=== PATIENT | female | born 1990 | race African-American/Black ===

== ENCOUNTER 2016-12-13 14:50 | Emergency (ER) | payer SELFPAY ==
[~2016-12-13] VITALS: Ht 172.7 cm; Wt 96.4 kg
[~2016-12-13 14:50] MED LIST: CEPHALEXIN500 M1 PO; IMPLANON68 MG; LANOLIN TP; MOTRIN 600600 MG/TAB PO; NO HOME MEDICATIONS; PERCOCET 325 MG1 TA2 PO; PERCOCET 5/321 UDTAB PO; TUCKS50% TP
[2016-12-13 14:55] VITALS: BP 126/82; PULSE 103; TEMP 97.8
[2016-12-13 16:10] LABS: BASO % 0.1 % (0.0-2.0); EOS # 0.1 (0.0-0.7); EOS % 0.6 % (0-4.0); GRAN # 12.3 (1.4-6.5); GRAN % 84.8 % (42.2-75.2); HEMOGLOBIN 13.6 g/dl (12.5-16.0); LYMPH # 1.2 (1.2-3.4); MEAN CELL VOLUME 88 fl (80.0-100.0); MEAN CORPUSCULAR HEMOGLOBIN 29 pg (27.0-31.0); MEAN CORPUSCULAR HGB CONC 32 g/dl (33.0-37.0); MEAN PLATELET VOLUME 10.3 fl (7.4-10.4); MONO # 0.9 (0.1-0.6); MONO % 6.2 % (1.7-9.3); PLATELET COUNT 281 K/mm3 (130-400); RED BLOOD COUNT 4.77 M/mm3 (4.10-5.30); REDCELL DISTRIBUTION WIDTH-CV 13.9 % (11.5-14.5); WHITE BLOOD COUNT 14.5 K/mm3 (4.8-10.8)
[2016-12-13 16:22] LABS: ADJUSTED CALCIUM 9.3 mg/dL (8.4-10.2); ALBUMIN 4.5 gm/dL (3.5-5.0); BILIRUBIN,TOTAL 0.6 mg/dL (0.0-1.0); C-REACTIVE PROTEIN 1.2 mg/dL (0.0-0.9); CALCIUM 9.7 mg/dL (8.4-10.2); CREATININE, serum 0.86 mg/dL (0.52-1.25); POTASSIUM 3.8 mmol/L (3.4-5.0); TOTAL PROTEIN 8.4 gm/dL (6.4-8.2)
[2016-12-13] MEDS ORDERED: ZOFRAN 4MG T4 MG/TAB PO (16:53)
== END 2016-12-13 17:35 | disposition home or self-care (01) ==
LOC: COL.ER 14:50
PROVIDERS: Emergency Medicine
DX: R10.84 Generalized abdominal pain (principal); R11.10 Vomiting, unspecified; R19.7 Diarrhea, unspecified
CPT/HCPCS: J2405; J2550; J7030

== ENCOUNTER 2017-05-08 14:50 | Emergency (ER) | payer SELFPAY ==
[~2017-05-08] VITALS: Ht 172.7 cm; Wt 100.7 kg
[~2017-05-08 14:50] MED LIST changes: +ZOFRAN 4MG T4 MG/TAB PO
[2017-05-08 14:52] VITALS: BP 120/73; PULSE 72; TEMP 98.2
[2017-05-08] MEDS ORDERED: AMOXICILLIN 50500 MG PO (15:19)
== END 2017-05-08 15:31 | disposition home or self-care (01) ==
LOC: COL.ER 14:50
DX: J02.9 Acute pharyngitis, unspecified (principal); K08.89 Other specified disorders of teeth and supporting structures

== ENCOUNTER → 2017-06-22 | Emergency (ER) | payer SELFPAY ==
[~2017-06-22] VITALS: Ht 172.7 cm; Wt 93.2 kg
[~2017-06-22] MED LIST changes: +AMOXICILLIN 50500 MG PO; +NORCOELIX PO
[2017-06-22 10:09] VITALS: BP 109/65; PULSE 80; TEMP 98
== END ==
LOC: COL.ER 09:58
DX: J02.9 Acute pharyngitis, unspecified (principal)

== ENCOUNTER 2017-06-23 08:41 | Emergency (ER) | payer SELFPAY ==
[~2017-06-23] VITALS: Ht 172.7 cm; Wt 93.2 kg
[~2017-06-23 08:41] MED LIST changes: -NORCOELIX PO
[2017-06-23 08:44] VITALS: BP 103/64; TEMP 99.4
[2017-06-23] MEDS ORDERED: NORCOELIX PO (09:30)
[2017-06-23 10:14] VITALS: PULSE 92
== END 2017-06-23 10:15 | disposition home or self-care (01) ==
LOC: COL.ER 08:41
DX: J03.90 Acute tonsillitis, unspecified (principal)
CPT/HCPCS: J1100

== ENCOUNTER 2018-04-07 16:53 | Emergency (ER) | payer MEDICAID ==
[~2018-04-07] VITALS: Ht 172.7 cm; Wt 95.5 kg
[~2018-04-07 16:53] MED LIST changes: +NORCOELIX PO
[2018-04-07 16:59] VITALS: BP 123/69; TEMP 98.2
[2018-04-07 17:50] LABS: BASO % 0.1 % (0.0-2.0); EOS # 0.2 (0.0-0.7); EOS % 2.1 % (0-4.0); GRAN # 5.7 (1.4-6.5); GRAN % 68.5 % (42.2-75.2); HEMATOCRIT 35.7 % (37.0-47.0); HEMOGLOBIN 11.5 g/dl (12.5-16.0); LYMPH # 1.7 (1.2-3.4); LYMPH % 20.2 % (20.0-51.0); MEAN CELL VOLUME 89 fl (80.0-100.0); MEAN CORPUSCULAR HEMOGLOBIN 29 pg (27.0-31.0); MEAN CORPUSCULAR HGB CONC 32 g/dl (33.0-37.0); MEAN PLATELET VOLUME 10.2 fl (7.4-10.4); MONO # 0.7 (0.1-0.6); MONO % 8.7 % (1.7-9.3); PLATELET COUNT 250 K/mm3 (130-400); RED BLOOD COUNT 4.03 M/mm3 (4.10-5.30); REDCELL DISTRIBUTION WIDTH-CV 14.2 % (11.5-14.5)
[2018-04-07 17:53] LABS: COLLECTION METHOD CLEAN CATCH
[2018-04-07 17:58] LABS: PH 8 (5-8); SQUAMOUS EPITHELIAL 0-2 /hpf; URINE APPEARANCE Clear; URINE BACTERIA None Seen /hpf; URINE BILIRUBIN Negative (NEGATIVE); URINE BLOOD Negative (NEGATIVE); URINE COLOR Straw; URINE GLUCOSE Negative (NEGATIVE); URINE KETONE Negative (NEGATIVE); URINE LEUKOCYTE ESTERASE Negative (NEGATIVE); URINE NITRATE Negative (NEGATIVE); URINE PROTEIN(semi-quant) Negative (NEGATIVE); URINE RBC 0-2 /hpf; URINE UROBILINOGEN Negative (NEGATIVE)
[2018-04-07 18:01] LABS: ALBUMIN 3.8 gm/dL (3.5-5.0); BILIRUBIN,TOTAL 0.2 mg/dL (0.0-1.0); CALCIUM 9.1 mg/dL (8.4-10.2); CREATININE, serum 0.77 mg/dL (0.52-1.25); POTASSIUM 3.8 mmol/L (3.4-5.0)
[2018-04-07 18:41] VITALS: PULSE 74
== END 2018-04-07 18:41 | disposition home or self-care (01) ==
LOC: COL.ER 16:53
PROVIDERS: Nurse Practitioner Primary Care
DX: O99.89 Other specified diseases and conditions complicating pregnancy, childbirth and the puerperium (principal); R10.9 Unspecified abdominal pain; Z3A.00 Weeks of gestation of pregnancy not specified

== ENCOUNTER 2018-12-01 16:33 | Outpatient (CLI) | payer MEDICAID ==
[~2018-12-01] VITALS: Ht 167.6 cm; Wt 118.2 kg
--- NOTE | 2018-12-01 16:50 | NUR ---
Pt arrives on unit via wheelchair. States pressure and increase of cramps since this morning. Denies leaking of fluid and vaginal bleeding. Reports GFM. Changed into clean gown. EFM and toco applied. VSS. SVE per this RN /-2. Admission assessment completed. Water given. Call light within reach. Bed locked in low position. Dr. Martin notified. See physician notification. Pt updated on POC. No questions or concerns at this time.
[2018-12-01 17:51] VITALS: BP 117/71; PULSE 107; TEMP 97.9
--- NOTE | 2018-12-01 17:57 | NUR ---
SVE per this RN unchanged. Pt taken off monitors. Orders for discharge. Discharge instructions given. No questions or concerns at this time. Pt leaves unit ambulatory.
== END 2018-12-01 17:58 | disposition home or self-care (01) ==
LOC: LDRO 16:33 → LDR 17:00 → LDRO 17:58
DX: O26.893 Other specified pregnancy related conditions, third trimester (principal); R25.2 Cramp and spasm; R10.9 Unspecified abdominal pain
CPT/HCPCS: OP

== ENCOUNTER 2018-12-05 15:43 | Outpatient (CLI) | payer MEDICAID ==
[~2018-12-05] VITALS: Ht 167.6 cm; Wt 117.7 kg
--- NOTE | 2018-12-05 16:00 | NUR ---
1600-G2L1 39.[address] [facility] WITH COMPLAINTS OF POSSIBLE SROM SINCE 0900. PATIENT GBS +. WENT TO REGULARLY SCHEDULED OB VISIT WITH SAMMIE DOE AND SENT TO UNIT. DENIES VB, REPORTS GOOD MOVEMET. REPORTS "ON AND OFF CONTRACTIONS SINCE LAST NIGHT." 1607-PLACED ON EFM DIFFICULTY TRACING FHR DUE TO MATERNAL POSITIONING AND HABITUS. RN REMAINS AT BEDSIDED FREQUENTLY REPOSITIONING EFM. 1620-AMNITEST NEG. SVE /-2 UNCHANGED FROM VISIT ON UNIT 12/01/18. UPDATE . 1633-AMNISURE COLLECTED. ASSESSMENT COMPLETE. UPDATED ON PLAN OF CARE.
[2018-12-05 16:01] VITALS: BP 113/59; PULSE 85; TEMP 98.2
[2018-12-05] MEDS ORDERED: PRENATAL (16:05)
[2018-12-05 16:30] VITALS: BP 113/59; PULSE 85
--- NOTE | 2018-12-05 17:10 | NUR ---
1710-Reviwed FHR monitor with charge nurse Rachel. Patient does not report feeling any contractioins since arrival to unit. 1715-RN readjusts toco and FHR monitor.
[2018-12-05 17:25] VITALS: BP 119/68; PULSE 88
--- NOTE | 2018-12-05 17:25 | NUR ---
1725-Dr. Cade called unit to report she had reviewed Amniosure results negative and reviewed FHR monitor remotely. Orders to discharge patient home. 1740-Reviwed Discharge instructions with patient. Answered questions. Reviwed when to return to hospital. 1750-Ambulatory off unit.
== END 2018-12-05 17:50 | disposition home or self-care (01) ==
LOC: LDR 15:43 → LDRO 15:43 → COL.ER 15:43 → EDSTATUS 15:49 → LDR 16:00 → LDRO 17:50
DX: Z34.93 Encounter for supervision of normal pregnancy, unspecified, third trimester (principal); Z3A.39 39 weeks gestation of pregnancy
CPT/HCPCS: OP

== ENCOUNTER 2018-12-05 20:00 | Inpatient (IN) | payer MEDICAID ==
[2018-12-05] VITALS (8 sets, daily range): BP systolic 114–137; BP diastolic 57–84; PULSE 78–120; TEMP 97.8–98.2
[~2018-12-05 20:00] MED LIST changes: +PRENATAL
--- NOTE | 2018-12-05 20:05 | NUR ---
Here with mother and girlfried. Says she had a gush of clear fluid at 1951 tonite while at restaurant.Cear fluid not streaming down legs. SVE /-2. EFM on irregular mild ctx.
[2018-12-05 21:59] LABS: BASO % 0.2 % (0.0-2.0); EOS # 0.1 (0.0-0.7); EOS % 0.4 % (0-4.0); GRAN % 77.4 % (42.2-75.2); LYMPH # 1.5 (1.2-3.4); LYMPH % 11.7 % (20.0-51.0); MEAN CELL VOLUME 88 fl (80.0-100.0); MEAN CORPUSCULAR HEMOGLOBIN 29 pg (27.0-31.0); MEAN CORPUSCULAR HGB CONC 33 g/dl (33.0-37.0); MEAN PLATELET VOLUME 11.3 fl (7.4-10.4); MONO # 1.2 (0.1-0.6); MONO % 9.1 % (1.7-9.3); PLATELET COUNT 220 K/mm3 (130-400); RED BLOOD COUNT 3.74 M/mm3 (4.10-5.30); REDCELL DISTRIBUTION WIDTH-CV 14.8 % (11.5-14.5)
[2018-12-05 22:01] LABS: HEMATOCRIT 32.9 % (37.0-47.0)
--- NOTE | 2018-12-05 22:07 | NUR ---
PIT STARTED A 2 MU/MIN
--- NOTE | 2018-12-05 23:10 | NUR ---
Jay MONTES [facility] CALLED FOR EPIDURAL PLACEMNET
--- NOTE | 2018-12-05 23:10 | NUR ---
PIT OFF DUE TO WORSENING VAARIABLES TO 58 BPM . O2 /MASK. DR MCDERMOTT NOTIFIED AT 2319 . COMING TO HOSPITAL. PIT RESTARTED AT 6 PER ORDER AT 0
[2018-12-06] VITALS (15 sets, daily range): BP systolic 102–143; BP diastolic 53–94; PULSE 75–100; TEMP 97.8–98.2
--- NOTE | 2018-12-06 03:19 | NUR ---
CATHED LARGE AMOUNT IMMEDIATELY AFTER DELIVERY
--- NOTE | 2018-12-06 10:14 | NUR ---
Initial visit; Parents thanked for offering congratulations for the of their son. thanked them for choosing [facility].
[2018-12-07 07:17] VITALS: BP 124/68; PULSE 76; TEMP 98.2
[2018-12-07] MEDS ORDERED: PERCOCET 325 MG1 TA2 PO (09:36)
[2018-12-07] MEDS ORDERED: IBU800 M1 PO (09:36)
[2018-12-07 15:55] VITALS: BP 136/86; PULSE 82; TEMP 98.1
[2018-12-07 21:00] VITALS: BP 126/80; PULSE 91; TEMP 98.3
[2018-12-08 08:15] VITALS: BP 124/83; PULSE 108; TEMP 98.3
[2018-12-08 12:15] VITALS: BP 130/87; PULSE 101; TEMP 98.5
--- NOTE | 2018-12-08 12:31 | NUR ---
PATIENT DISCHARGE INSTRUCTIONS REVIEWED WITH HER. SCRIPT FOR PERCOCET GIVEN AND EXPLAINED. APPOINTMENT REVIEWED. PATIENT VERBALIZES UNDERSTANDING. PATIENT AND ESCORTED OUT TO PRIVATE VEHICLE.
== END 2018-12-08 12:50 | disposition home or self-care (01) | DRG 807 ==
LOC: LDRO 20:00 → LDR 20:48 → OB 20:48
PROVIDERS: Obstetrics & Gynecology; ADMIT Student in an Organized Health Care Education/Training Program
PROC: 10E0XZZ Delivery of Products of Conception, External Approach (ICD-10-PCS; principal; 2018-12-06)
PROC: 0HQ9XZZ Repair Perineum Skin, External Approach (ICD-10-PCS; 2018-12-06)
DX: O70.0 First degree perineal laceration during delivery (principal); Z37.0 Single live birth; O99.214 Obesity complicating childbirth; O62.1 Secondary uterine inertia; Z3A.39 39 weeks gestation of pregnancy; O99.824 Streptococcus B carrier state complicating childbirth; O36.1930 Maternal care for other isoimmunization, third trimester, not applicable or unspecified
CPT/HCPCS: J2540; J2590; J2795; J7120

== ENCOUNTER 2019-03-21 10:43 | Emergency (ER) | payer MEDICAID ==
[~2019-03-21] VITALS: Ht 172.7 cm; Wt 111.4 kg
[~2019-03-21 10:43] MED LIST changes: +IBU800 M1 PO
[2019-03-21 10:57] VITALS: BP 132/91; TEMP 97.2
[2019-03-21] MEDS ORDERED: CLEOCIN HC150 MG/CAP PO (10:59)
[2019-03-21] MEDS ORDERED: NEXPLANON68 MG ID (11:16)
[2019-03-21 11:41] LABS: COLLECTION METHOD CLEAN CATCH
[2019-03-21 11:51] LABS: PH 6 (5-8); SQUAMOUS EPITHELIAL 0-2 /hpf; URINE APPEARANCE Clear; URINE BACTERIA None Seen /hpf; URINE BILIRUBIN Negative (NEGATIVE); URINE BLOOD 3+ (NEGATIVE); URINE COLOR Straw; URINE GLUCOSE Negative (NEGATIVE); URINE KETONE Negative (NEGATIVE); URINE LEUKOCYTE ESTERASE Negative (NEGATIVE); URINE NITRATE Negative (NEGATIVE); URINE PROTEIN(semi-quant) Negative (NEGATIVE); URINE RBC 20-50 /hpf; URINE UROBILINOGEN Negative (NEGATIVE)
[2019-03-21] MEDS ORDERED: NORCO 325 MG-51 TAB PO (12:12)
[2019-03-21] MEDS ORDERED: FLEXERIL 1010 MG/TAB PO (12:12)
[2019-03-21 12:34] VITALS: PULSE 70
== END 2019-03-21 12:36 | disposition home or self-care (01) ==
LOC: COL.ER 10:43
PROVIDERS: Physician Assistant
DX: S39.012A Strain of muscle, fascia and tendon of lower back, initial encounter (principal); Z98.890 Other specified postprocedural states; X58.XXXA Exposure to other specified factors, initial encounter
CPT/HCPCS: J1885

== ENCOUNTER 2020-09-09 17:16 | Emergency (ER) | payer MEDICAID ==
[~2020-09-09] VITALS: Ht 172.7 cm; Wt 106.8 kg
[~2020-09-09 17:16] MED LIST changes: +CLEOCIN HC150 MG/CAP PO; +FLEXERIL 1010 MG/TAB PO; +NEXPLANON68 MG ID; +NORCO 325 MG-51 TAB PO
[2020-09-09 17:20] VITALS: BP 110/80; PULSE 100; TEMP 98
[2020-09-09 18:35] LABS: COLLECTION METHOD CLEAN CATCH
[2020-09-09 18:42] LABS: PH 7 (5-8); SQUAMOUS EPITHELIAL 0-2 /hpf; URINE APPEARANCE Clear; URINE BACTERIA None Seen /hpf; URINE BILIRUBIN Negative (NEGATIVE); URINE BLOOD Negative (NEGATIVE); URINE COLOR Yellow; URINE GLUCOSE Negative (NEGATIVE); URINE KETONE Negative (NEGATIVE); URINE LEUKOCYTE ESTERASE Negative (NEGATIVE); URINE NITRATE Negative (NEGATIVE); URINE PROTEIN(semi-quant) Negative (NEGATIVE); URINE RBC 0-2 /hpf; URINE UROBILINOGEN Negative (NEGATIVE)
== END 2020-09-09 19:14 | disposition home or self-care (01) ==
LOC: COL.ER 17:16
PROVIDERS: Emergency Medicine
DX: N34.2 Other urethritis (principal); Z32.02 Encounter for pregnancy test, result negative
CPT/HCPCS: J0696

== ENCOUNTER 2021-02-17 18:00 | Emergency (ER) | payer MEDICAID ==
[~2021-02-17] VITALS: Ht 172.7 cm; Wt 122.7 kg
[2021-02-17] MEDS ORDERED: NORCO 325 MG-51 TAB PO (18:16)
[2021-02-17] MEDS ORDERED: AMOXICILLIN 50500 MG PO (18:16)
[2021-02-17 18:29] VITALS: BP 132/83; PULSE 87; TEMP 98.3
== END 2021-02-17 18:27 | disposition home or self-care (01) ==
LOC: COL.ER 18:00
DX: K02.9 Dental caries, unspecified (principal); N34.2 Other urethritis

== ENCOUNTER 2021-04-13 15:17 | Emergency (ER) | payer MEDICAID ==
[~2021-04-13] VITALS: Ht 172.7 cm; Wt 120.9 kg
[2021-04-13 15:34] VITALS: BP 114/80; TEMP 97.9
[2021-04-13] MEDS ORDERED: TOBRADEX EYE DRO5 ML OU (16:36)
[2021-04-13 17:08] VITALS: PULSE 85
== END 2021-04-13 17:09 | disposition home or self-care (01) ==
LOC: COL.ER 15:17
DX: H10.9 Unspecified conjunctivitis (principal)